=== PATIENT | female | born 1945 | race Caucasian/White ===

== ENCOUNTER 2018-06-21 01:12 | Observation (INO) ==
[2018-06-21] MEDS ORDERED: diazePAM 5 MG Tablet PO ONE (01:17)
--- NOTE | 2018-06-21 01:29 | ED ---
HPI General Chief Complaint: Dizziness Stated Complaint: dizziness Time Seen by Provider: 06/21/18 01:17 Source: patient Mode of arrival: EMS Limitations: no limitations History of Present Illness HPI Narrative: The patient is a 73-year-old female who presents to the emergency department via EMS for dizziness. The patient notes intermittent dizziness over the last several weeks, thought she had benign positional vertigo and has been taking meclizine. The patient states her previous episodes of dizziness were light and self resolving. However, the patient awakened tonight with severe dizziness which she describes as "room spinning ". She also complains of nausea and vomiting. The patient states when she first stood up, she fell backwards on the bed because of the dizziness. The patient then tried ambulating to the bathroom and had to hold onto the wall. The patient's dizziness is worse when she turns her head to the left, goes from lying to standing, and when she tries to ambulate. The patient does have a history of diabetes, denies any history of hypertension, hyperlipidemia, or tobacco use. The patient was told several years ago that she may have suffered multiple TIAs. Symptoms are moderate and progressive. The patient's primary physician is Dr. Herrera. complaint: Reports dizziness Onset (ago): hour(s) Timing: awoke with symptoms Description: Reports "room spinning" History of similar episodes: Yes History of trauma: No Severity: severe Relieving factors: remaining still Exacerbating factors: movement and position Associated symptoms: Reports ataxia, weakness, nausea and vomiting Related Data Allergies Allergy/AdvReac Type Severity Reaction Status Date / Time cephalexin Allergy Severe Rash Unverified 12/20/16 19:08 penicillin G Allergy Severe Unverified 12/20/16 19:08 simvastatin Allergy Severe swelling Unverified 12/20/16 19:08 Sulfa (Sulfonamide Allergy Severe Unverified 12/20/16 19:08 Antibiotics) egg Allergy Mild stomach Unverified 12/20/16 19:08 pain Review of Systems ROS: all other systems reviewed are negative [facility] Social History Social History Substance History: No History of Abuse Smoking Status: Former smoker How Often Do You Have a Drink Containing Alcohol: Never Recent Travel in [facility] within the Last 8 Weeks: No Recent Out of Country Travel within the Last 8 Weeks: No Exam Narrative Exam Narrative: GENERAL: Awake, alert, 73-year-old female who appears her stated age and is in no acute respiratory distress. SKIN: Focused skin assessment warm/dry. HEAD: Atraumatic. Normocephalic. EYES: Pupils equal and round. Millimeters bilateral and reactive. Minimal nystagmus to the left and right with EOMs. ENT: No nasal bleeding or discharge. Mucous membranes pink and moist. NECK: Trachea midline. No JVD. CARDIOVASCULAR: Regular rate and rhythm. No murmur appreciated. RESPIRATORY: No accessory muscle use. Clear to auscultation. Breath sounds equal bilaterally. GASTROINTESTINAL: Abdomen soft, non-tender, nondistended. No rebound tenderness. MUSCULOSKELETAL: No obvious deformities. No clubbing. No cyanosis. No edema. NEUROLOGICAL: Awake and alert. No obvious cranial nerve deficits. Motor grossly within normal limits. Normal speech. No drift of the upper or lower extremities. Minimally decreased sensation to soft touch on the left lower extremity, however, she states that is chronic secondary to previous knee surgery. Heel to keita is normal. Finger to nose is normal. Visual redd appear symmetric. No dysarthria noted. Smile is symmetric. Tongue is midline. Sensation is symmetric on the face and legs. Patient with ambulation drifted to the right. PSYCHIATRIC: Appropriate mood and affect; insight and judgment normal. Course Initial Documented Vital Signs Pulse Rate 77 06/21/18 01:14 Respiratory Rate 18 06/21/18 01:14 Blood Pressure 200/78 H 06/21/18 01:14 Pulse Oximetry 98 06/21/18 01:14 Last Documented Vital Signs Pulse Rate 80 06/21/18 01:39 Respiratory Rate 13 06/21/18 01:39 Blood Pressure 148/65 H 06/21/18 01:39 Pulse Oximetry 97 06/21/18 01:39 Medical Decision Making [facility] Narrative Medical decision making narrative: IV was established, labs are drawn and sent, and the patient was placed on cardiac telemetry monitoring and continuous pulse oximetry monitoring. CT of the brain was obtained. The patient was administered meclizine and Valium. I did attempt to ambulate the patient, however, she was unable to ambulate in a straight line without assistance. The patient was walking to the right with a right hand held out for balance. CT of the brain was negative. Laboratory evaluation is unremarkable. The patient was reevaluated at 4 AM, still has dizziness, cannot rule out cerebellar infarct. The patient is still unable to ambulate, will be a 23-hour observation. The patient would benefit from noncontrast MRI of the brain, if negative, physical therapy evaluation. The patient was administered aspirin 162 mg orally. The patient's UA did have 9 WBCs, culture is pending, patient was administered Macrobid orally. Medical Screen Exam Complete: Yes Emergency Medical Condition: Yes Differential Diagnosis Differential Diagnosis: Differential diagnosis includes vestibular neuritis, Mnire's disease, labyrinthitis, benign positional vertigo, neuroma, CVA, hemorrhage, hyponatremia. Lab Data Lab results reviewed: Yes I reviewed the patient's lab results. Result diagrams: 06/21/18 02:40 06/21/18 02:40 Lab Results 06/21/18 06/21/18 06/21/18 Range/Units 02:40 02:40 03:02 WBC 7.4 (4.0-11.0) th/mm3 RBC 4.86 (4.00-5.30) mil/mm3 Hgb 14.3 (11.6-15.3) gm/dL Hct 41.1 (35.0-46.0) % MCV 84.6 (80.0-100.0) fL MCH 29.5 (27.0-34.0) pg MCHC 34.8 (32.0-36.0) % RDW 14.7 (11.6-17.2) % Plt Count 211 (150-450) th/mm3 MPV 7.8 (7.0-11.0) fL Neut % (Auto) 67.0 (16.0-70.0) % Lymph % (Auto) 19.1 (9.0-44.0) % [place] % (Auto) 9.0 H (0.0-8.0) % Eos % (Auto) 4.2 H (0.0-4.0) % Baso % (Auto) 0.7 (0.0-2.0) % Neut # (Auto) 4.9 (1.8-7.7) th/mm3 Lymph # (Auto) 1.4 (1.0-4.8) th/mm3 [place] # (Auto) 0.7 (0.0-0.9) th/mm3 Eos # (Auto) 0.3 (0.0-0.4) th/mm3 Baso # (Auto) 0.0 (0.0-0.2) th/mm3 WBC Differential . Differential Comment Auto diff final Sodium 144 (136-145) meq/L Potassium 4.2 (3.5-5.1) meq/L Chloride 109 H (98-107) meq/L Carbon Dioxide 27.7 (21.0-32.0) meq/L Anion Gap 7 (5-15) meq/L BUN 21 H (7-18) mg/dL Creatinine 0.98 (0.50-1.00) mg/dL Estimated GFR 55 L (>89) mL/min Random Glucose 103 (74-106) mg/dL Calcium 9.6 (8.5-10.1) mg/dL Total Bilirubin 0.5 (0.2-1.0) mg/dL AST 22 (15-37) U/L ALT 30 (10-53) U/L Alkaline Phosphatase 85 (45-117) U/L Troponin I Less than 0.02 L (0.02-0.05) ng/mL Total Protein 7.3 (6.4-8.2) g/dL Albumin 3.9 (3.4-5.0) g/dL Urine Color Straw (Yellw/Straw) Urine Clarity Clear (Clear) Urine pH 6.0 (5.0-8.5) Ur Specific [place] 1.006 (1.002-1.035) Urine Protein Negative (Neg-Trace) mg/dL Urine Glucose (UA) Negative (Negative) mg/dL Urine Ketones Negative (Negative) mg/dL Urine Occult Blood Negative (Negative) Urine Nitrate Negative (Negative) Urine Bilirubin Negative (Negative) Urine Urobilinogen Less than 2 (Less than 2) mg/dL Ur Leukocyte Esterase Moderate H (Negative) Urine RBC Less than 1 (0-3) /hpf Urine WBC 9 H (0-5) /hpf Urine Bacteria Rare H (None) /hpf Urine Mucus Few H (Occasional) /lpf Micro UA Comment Culture indicated Ur Microscopic Review Not Reportable Urine Culture Comments Culture indicated Imaging Data Radiologist's impression: Head CT 06/21/18 01:17 CONCLUSION: No acute intracranial findings. . ECG Data EKG Prior to Arrival: No Attestation: I personally reviewed and interpreted this ECG as follows: Interpretation: EKG reveals normal sinus rhythm with a rate 81. No ischemic changes or ectopy noted. Discharge Plan Discharge Disposition Patient Disposition: ED Admit(ED Internal Use Only) Discharge Condition Condition: Stable Discharge Order Discharge Orders: ED Use Only Admit Order (Routine); Ordered 06/21/18 Ordered By: Jw Rose Discharge Details Diagnosis: Dizziness, Acute UTI Physicians Team ED Provider: Jw Rose Primary Care Provider: Jere Hebert Discharge Interventions Interventions: Vital Signs Last Done: 06/21/18 01:39 Status ED Status: Admitted Observation Patient
[2018-06-21 03:00] LABS: Baso % (Auto) 0.7 % (0.0-2.0); Eos # (Auto) 0.3 th/mm3 (0.0-0.4); Eos % (Auto) 4.2 % (0.0-4.0); Hematocrit 41.1 % (35.0-46.0); Hemoglobin 14.3 gm/dL (11.6-15.3); Lymph # (Auto) 1.4 th/mm3 (1.0-4.8); Lymph % (Auto) 19.1 % (9.0-44.0); Mean Corpuscular HGB Conc 34.8 % (32.0-36.0); Mean Corpuscular Hemoglobin 29.5 pg (27.0-34.0); Mean Corpuscular Volume 84.6 fL (80.0-100.0); Mean Platelet Volume 7.8 fL (7.0-11.0); Mono # (Auto) 0.7 th/mm3 (0.0-0.9); Neut # (Auto) 4.9 th/mm3 (1.8-7.7); Platelet Count 211 th/mm3 (150-450); Red Blood Count 4.86 mil/mm3 (4.00-5.30); Red Cell Distribution Width 14.7 % (11.6-17.2); White Blood Count 7.4 th/mm3 (4.0-11.0)
[2018-06-21 03:19] LABS: Albumin 3.9 g/dL (3.4-5.0); Anion Gap 7 meq/L (5-15); Aspartate Aminotransferase 22 U/L (15-37); Blood Urea Nitrogen 21 mg/dL (7-18); Calcium 9.6 mg/dL (8.5-10.1); Carbon Dioxide 27.7 meq/L (21.0-32.0); Chloride 109 meq/L (98-107); Glomerular Filtration Rate 55 mL/min (>89); Glucose,Random 103 mg/dL (74-106); Potassium 4.2 meq/L (3.5-5.1); Sodium 144 meq/L (136-145)
[2018-06-21 03:23] LABS: Alanine Aminotransferase 30 U/L (10-53); Alkaline Phosphatase 85 U/L (45-117); Total Protein 7.3 g/dL (6.4-8.2)
[2018-06-21 03:26] LABS: Bacteria,Urine Rare /hpf; Bilirubin,Urine Negative (Negative); Clarity,Urine Clear (Clear); Color,Urine Straw (Yellw/Straw); Glucose,Urine (UA) Negative (Negative); Leukocyte Esterase,Urine Moderate (Negative); Mucus,Urine Few /lpf (Occasional); Nitrite,Urine Negative (Negative); Specific Gravity,Urine 1.006 (1.002-1.035)
[2018-06-21] MEDS ORDERED: Nitrofurantoin Monohydrate-Macrocrystal 100 MG Capsule PO ONE (03:30)
--- NOTE | 2018-06-21 03:38 | CT ---
EXAM DATE: 06/21/2018 3:24 AM EST AGE/SEX: 73 years / Female INDICATIONS: Dizziness. CLINICAL DATA: This is the patient's initial encounter. Patient reports that signs and symptoms have been present for 1 day and indicates a pain score of 0/10. MEDICAL/SURGICAL HISTORY: Carcinoma, breast. Diabetes. COPD. TIA. None. RADIATION DOSE: 56.35 CTDI (mGy) COMPARISON: No prior exams available for comparison. TECHNIQUE: CT of the head without contrast. Using automated exposure control and adjustment of the mA and/or kV according to patient size, radiation dose was kept as low as reasonably achievable to ob tain optimal diagnostic quality images. DICOM format image data is available electronically for revi ew and comparison. FINDINGS: Patchy moderate diminished density in periventricular white matter which appears benign, likely micro vascular ischemic in etiology. No evidence of intracranial hemorrhage or mass. Nothing to suggest acu te infarction. Extracranial structures are benign in intact. CONCLUSION: No acute intracranial findings. . Electronically signed by: Amor Varghese MD Board Certified Radiologist 06/21/2018 3:36 AM EST
[2018-06-21] MEDS: Sod Chloride 0.9% Inj 1,000 ML IV.CONT SCH ×3 (04:26→20:55)
[2018-06-21] MEDS ORDERED: Acetaminophen 325 MG Tablet PO PRN (04:44)
[2018-06-21] MEDS ORDERED: Dextrose 50% in Water 50 ML Vial IV.PUSH PRN (04:56)
--- NOTE | 2018-06-21 04:56 | P.HPIM ---
History of Present Illness Service: [facility] Primary Care Physician: Chuck Hebert MD Chief Complaint: Dizziness History of Present Illness: 73 y/o Female with a history of skin cancer, breast cancer, diabetes, fibromyalgia, IBS, restless leg and chronic fatigue syndrome presented to the ED with complaints of dizziness. Patient states for last 2 weeks she has had intermittent episodes of dizziness where she feels like the room is spinning and she feels off balance and has to hang onto ricks to be able to get where she is going. She denies any associated double vision, blurry vision, chest pain, shortness of breath, fever, chills, ear pain, congestion, headaches, abdominal pain or dysuria. She states her son gave her some meclizine tablets and it did relieve the symptoms for a little bit. She states tonight she did have some nausea with the dizziness but no vomiting. She does state that the dizziness is worse when she looks to the left versus the right. No history of falls. Review of Systems Review of Systems: all other systems reviewed are negative [facility] Social History Social History Substance History: No History of Abuse Second Hand Smoke Exposure: Yes Smoking Status: Former smoker Tobacco Type: Cigarettes How Often Do You Have a Drink Containing Alcohol: Never Recent Travel in [facility] within the Last 8 Weeks: No Recent Out of Country Travel within the Last 8 Weeks: No Immunization History Tetanus Immunization: Unsure Medications and Allergies Allergies Allergy/AdvReac Type Severity Reaction Status Date / Time cephalexin Allergy Severe Rash Unverified 12/20/16 19:08 penicillin G Allergy Severe Unverified 12/20/16 19:08 simvastatin Allergy Severe swelling Unverified 12/20/16 19:08 Sulfa (Sulfonamide Allergy Severe Unverified 12/20/16 19:08 Antibiotics) egg Allergy Mild stomach Unverified 12/20/16 19:08 pain Home Medications Medication Instructions Recorded Confirmed Type Advair HFA 06/21/18 History metformin 100 mg PO DAILY 06/21/18 06/21/18 History Active Medications: Active Medications Acetaminophen (Tylenol) 650 mg PO Q4H PRN PRN Reason: Temp > 100.4 Sodium Chloride (Ns Inj) 1,000 mls @ 100 mls/hr IV.CONT .Q10H YANELIS Last Admin: 06/21/18 04:26 Dose: 100 mls/hr Ondansetron HCl (Zofran Inj) 4 mg IV.PUSH Q6H PRN PRN Reason: NAUSEA OR VOMITING Sodium Chloride (Ns Flush) 2 ml IV.FLUSH PRN PRN PRN Reason: FLUSH AFTER USING IV ACCESS Physical Exam Vital signs: Vital Signs 06/21/18 01:14 06/21/18 01:39 Pulse Rate 77 80 Respiratory Rate 18 13 Blood Pressure 200/78 H 148/65 H Pulse Oximetry 98 97 Intake & Output 06/20/18 06/20/18 06/21/18 06:59 18:59 06:59 Weight 95.708 kg Narrative: GENERAL: Well-nourished patient in no acute distress SKIN: Warm and dry. No open lesions or abrasions EENT: Pupils equal and round. No scleral icterus. No injection or drainage. No nasal bleeding or discharge. Mucous membranes pink and moist. Tympanic membranes pearly walter no evidence of effusion. CARDIOVASCULAR: Regular rate and rhythm. RESPIRATORY: No accessory muscle use. Clear to auscultation. Breath sounds equal bilaterally. GASTROINTESTINAL: Abdomen soft, non-tender, nondistended. Hepatic and splenic margins not palpable. MUSCULOSKELETAL: Extremities without clubbing, cyanosis, or edema. No obvious deformities. NEUROLOGICAL: Awake and alert. No obvious cranial nerve deficits. Motor grossly within normal limits. Five out of 5 muscle strength in the arms and legs. Normal speech. Results Labs CBC & Chem 7: 06/21/18 02:40 06/21/18 02:[address] 06/21/18 01:17 CONCLUSION: No acute intracranial findings. . Caprini VTE Risk Assessment Caprini VTE Risk Assessment: No/Low Risk (score <= 1) Caprini Risk Assessment Model: Point Value = 1 Point Value = 2 Point Value = 3 Point Value = 5 Age 41-60 Minor surgery BMI > 25 kg/m2 Swollen legs Varicose veins or History of unexplained or recurrent spontaneous Oral contraceptives or hormone replacement Sepsis (< 1 month) Serious lung disease, including pneumonia (< 1 month) Abnormal pulmonary function Acute myocardial infarction Congestive heart failure (< 1 month) History of inflammatory bowel disease Medical patient at bed rest Age 61-74 Arthroscopic surgery Major open surgery (> 45 min) Laparoscopic surgery (> 45 min) Malignancy Confined to bed (> 72 hours) Immobilizing plaster cast Central venous access Age >= 75 History of VTE Family history of VTE Factor V Leiden Prothrombin [id number] Lupus anticoagulant Anticardiolipin antibodies Elevated serum homocysteine Heparin-induced thrombocytopenia Other congenital or acquired thrombophilia Stroke (< 1 month) Elective arthroplasty Hip, pelvis, or leg fracture Acute spinal cord injury (< 1 month) Prophylaxis Regimen: Total Risk Factor Score Risk Level Prophylaxis Regimen 0-1 Low Early ambulation 2 Moderate Order ONE of the following: *Sequential Compression Device (SCD) *Heparin 5000 units SQ BID 3-4 Higher Order ONE of the following medications: *Heparin 5000 units SQ TID *Enoxaparin/Lovenox 40 mg SQ daily (WT < 150 kg, CrCl > 30 mL/min) *Enoxaparin/Lovenox 30 mg SQ daily (WT < 150 kg, CrCl > 10-29 mL/min) *Enoxaparin/Lovenox 30 mg SQ BID (WT < 150 kg, CrCl > 30 mL/min) AND/OR *Sequential Compression Device (SCD) 5 or more Highest Order ONE of the following medications: *Heparin 5000 units SQ TID (Preferred with Epidurals) *Enoxaparin/Lovenox 40 mg SQ daily (WT < 150 kg, CrCl > 30 mL/min) *Enoxaparin/Lovenox 30 mg SQ daily (WT < 150 kg, CrCl > 10-29 mL/min) *Enoxaparin/Lovenox 30 mg SQ BID (WT < 150 kg, CrCl > 30 mL/min) AND *Sequential Compression Device (SCD) Assessment and Plan Plan 73 y/o Female with a history of skin cancer, breast cancer, diabetes, fibromyalgia, IBS, restless leg and chronic fatigue syndrome presented to the ED with complaints of dizziness. Vertigo Head CT reviewed and shows no acute abnormalities -MRI of the brain ordered -Meclizine p.o. as needed -PT for Tanika maneuver UTI, mild UA shows moderate leukocyte esterase with rare bacteria -Culture pending -Macrobid p.o. twice daily Diabetes, chronic -Accu-Cheks with sliding scale insulin -Diabetic diet -Hold metformin for now DVT prophylaxis: SCDs The exam, history, and the medical decision-making described in the above note were completed with the assistance of the mid-level provider. I reviewed and agree with the findings presented. I attest that I had a [id number] encounter with the patient on the same day, and personally performed and documented my assessment and findings in the medical record. Attending Attestation The exam, history, and the medical decision-making described in the above note were completed with the assistance of the mid-level provider. I reviewed and agree with the findings presented. I attest that I had a [id number] encounter with the patient on the same day, and personally performed and documented my assessment and findings in the medical record.
[2018-06-21] MEDS ORDERED: Gadobutrol PF 10 MMOL/10 ML Vial (for RAD) IV.SIG ONE (08:55)
--- NOTE | 2018-06-21 09:01 | MR ---
EXAM DATE: 06/21/2018 8:49 AM EST AGE/SEX: 73 years / Female INDICATIONS: Dizziness. CLINICAL DATA: This is the patient's subsequent encounter. Patient reports that signs and symptoms h ave been present for 1 day and indicates a pain score of 3/10. MEDICAL/SURGICAL HISTORY: Carcinoma, breast. Diabetes mellitus type II. skin cancer Cholecyst ectomy. Hysterectomy. Tubal ligation. Breast cancer removed, skin cancer, knee replacement COMPAR[place]: [facility] HEAD W/O CONTRAST, 06/21/2018. . TECHNIQUE: Multiplanar, multisequence examination of the brain was performed without and with 9.5 ml Gadavist (gadobutrol) contrast as a single exam dose. FINDINGS: Cerebrum: Moderate diffuse cerebral atrophy. The ventricles are normal for age. No evidence of midl ine shift, mass lesion, hemorrhage or acute infarction. No extraaxial fluid collections are seen. T he pituitary gland and suprasellar cistern are normal in configuration. White Matter: Prominent periventricular coalescing white matter T2 prolongation. Posterior Fossa: The cerebellum and brainstem are intact. The 4th ventricle is midline. The cerebel lopontine angle is unremarkable. The cerebellar tonsils are normal in position. Diffusion Imaging: No focal areas of restricted diffusion are seen. No evidence of acute infarction . Extracranial: The visualized portions of the orbits and paranasal sinuses are unremarkable. Post Contrast: No abnormal areas of parenchymal or dural enhancement. No evidence of blood-brain ba rrier breakdown. CONCLUSION: 1. Senescent changes with prominent periventricular ischemic white matter demyelination. 2. No acute abnormality. Specifically, no acute infarction, hemorrhage or mass. Electronically signed by: Benson Putnam MD Board Certified Radiologist 06/21/2018 8:59 AM EST
[2018-06-21] MEDS: Insulin NovoLOG Aspart Correctional Sugar Inj SQ SCH ×4 (09:21→20:55)
[2018-06-21] MEDS: Nitrofurantoin Monohydrate-Macrocrystal 100 MG Capsule PO SCH ×2 (09:23→17:11)
--- NOTE | 2018-06-21 11:34 | ECG ---
Date Performed: 06/21/2018 Time Performed: 02:08:14 PTAGE: 73 years EKG: Sinus rhythm NORMAL ECG Since the PREVIOUS TRACING , no significant change noted PREVIOUS TRACIN08/28/2015 17.03 DOCTOR: Gaetano Angel Interpretating Date/Time 06/21/2018 11:32:41
--- NOTE | 2018-06-21 15:42 | P.DCO ---
Physical Therapy Order: Evaluate and treat Home Health Nursing Order: Medical education, Signs/symptoms of disease process, Medication education-adverse effect and Nursing assessment with vital signs Case Management Consult Case Management Consult-Home Health: Yes I have seen patient Rachana Quinteros on 06/21/18. My clinical findings support the need for the requested home health care services because: Limited mobility due to disease progression I certify that my clinical findings support that this patient is homebound because: Post-op weakness, Impaired cognitive ability/safety and Unsteady gait/balance
[2018-06-22] MEDS: Insulin NovoLOG Aspart Correctional Sugar Inj SQ SCH ×2 (08:32→13:38)
[2018-06-22 08:44] VITALS: RESP 16; TEMP 97.7; O2SAT 94
[2018-06-22] MEDS: Nitrofurantoin Monohydrate-Macrocrystal 100 MG Capsule PO SCH (08:44)
[2018-06-22] MEDS: Sod Chloride 0.9% Inj 1,000 ML IV.CONT SCH ×2 (08:47→10:52)
[2018-06-22 08:50] LABS: Baso # (Auto) 0.1 th/mm3 (0.0-0.2); Baso % (Auto) 1.3 % (0.0-2.0); Eos # (Auto) 0.3 th/mm3 (0.0-0.4); Eos % (Auto) 5.7 % (0.0-4.0); Hematocrit 42.6 % (35.0-46.0); Hemoglobin 14.6 gm/dL (11.6-15.3); Lymph # (Auto) 1.4 th/mm3 (1.0-4.8); Lymph % (Auto) 26.2 % (9.0-44.0); Mean Corpuscular HGB Conc 34.2 % (32.0-36.0); Mean Corpuscular Hemoglobin 29.3 pg (27.0-34.0); Mean Corpuscular Volume 85.8 fL (80.0-100.0); Mean Platelet Volume 7.7 fL (7.0-11.0); Mono # (Auto) 0.6 th/mm3 (0.0-0.9); Mono % (Auto) 11.7 % (0.0-8.0); Neut % (Auto) 55.1 % (16.0-70.0); Platelet Count 193 th/mm3 (150-450); Red Blood Count 4.97 mil/mm3 (4.00-5.30); White Blood Count 5.4 th/mm3 (4.0-11.0)
[2018-06-22 09:25] LABS: Carbon Dioxide 26.2 meq/L (21.0-32.0); Potassium 3.9 meq/L (3.5-5.1)
[2018-06-22 11:58] VITALS: BP 115/58; PULSE 74
--- NOTE | 2018-06-22 20:30 | P.DS ---
DS: Providers Date of admission: 06/21/18 04:07 Primary care physician: Chuck Hebert MD Brief History from admission: 73 y/o Female with a history of skin cancer, breast cancer, diabetes, fibromyalgia, IBS, restless leg and chronic fatigue syndrome presented to the ED with complaints of dizziness. Patient states for last 2 weeks she has had intermittent episodes of dizziness where she feels like the room is spinning and she feels off balance and has to hang onto ricks to be able to get where she is going. She denies any associated double vision, blurry vision, chest pain, shortness of breath, fever, chills, ear pain, congestion, headaches, abdominal pain or dysuria. She states her son gave her some meclizine tablets and it did relieve the symptoms for a little bit. She states tonight she did have some nausea with the dizziness but no vomiting. She does state that the dizziness is worse when she looks to the left versus the right. No history of falls. DS: Summary 73 y/o Female with a history of skin cancer, breast cancer, diabetes, fibromyalgia, IBS, restless leg and chronic fatigue syndrome presented to the ED with complaints of dizziness. UA suggestive of UTI received antibiotics. Patient is found with vertigo, imaging reviewed and no acute abnormalities. Meclizine ordered. Patient did walk with physical therapy and patient improved. PT recommends home with home health. Patient is discharged home with home health in stable condition to follow-up with PCP and consultants as outpatient. Vertigo Head CT reviewed and shows no acute abnormalities -MRI of the brain ordered -Meclizine p.o. as needed -PT for Tanika maneuver UTI, mild UA shows moderate leukocyte esterase with rare bacteria -Culture pending -Macrobid p.o. twice daily Diabetes, chronic -Accu-Cheks with sliding scale insulin -Diabetic diet -Hold metformin for now DVT prophylaxis: SCDs Time Spent with Patient Total time spent providing and/or coordinating discharge services:> 30 min Quality: VTE Deep Vein Thrombosis/Pulmonary Embolism Present on Admission: No Exam Narrative Exam Narrative: GENERAL: Pleasant 73 yo female, well-nourished patient in no acute distress CARDIOVASCULAR: Regular rate and rhythm. RESPIRATORY: No accessory muscle use. Clear to auscultation. Breath sounds equal bilaterally. GASTROINTESTINAL: Abdomen soft, non-tender, nondistended. Hepatic and splenic margins not palpable. MUSCULOSKELETAL: Extremities without clubbing, cyanosis, or edema. No obvious deformities. NEUROLOGICAL: Awake and alert. No obvious cranial nerve deficits. Motor grossly within normal limits. Normal speech. Results Labs on day of discharge: Labs from last 24 hours 06/22/18 06/22/18 06/22/18 12:25 08:37 08:37 WBC 5.4 RBC 4.97 Hgb 14.6 Hct 42.6 MCV 85.8 MCH 29.3 MCHC 34.2 RDW 15.0 Plt Count 193 MPV 7.7 Neut % (Auto) 55.1 Lymph % (Auto) 26.2 [place] % (Auto) 11.7 H Eos % (Auto) 5.7 H Baso % (Auto) 1.3 Neut # (Auto) 3.0 Lymph # (Auto) 1.4 [place] # (Auto) 0.6 Eos # (Auto) 0.3 Baso # (Auto) 0.1 WBC Differential . Differential Comment Auto diff final Sodium 142 Potassium 3.9 Chloride 109 H Carbon Dioxide 26.2 Anion Gap 7 BUN 15 Creatinine 0.77 Estimated GFR 73 L POC Glucose 169 H Random Glucose 99 Calcium 9.0 06/22/18 06/21/18 08:31 20:47 WBC RBC Hgb Hct MCV MCH MCHC RDW Plt Count MPV Neut % (Auto) Lymph % (Auto) [place] % (Auto) Eos % (Auto) Baso % (Auto) Neut # (Auto) Lymph # (Auto) [place] # (Auto) Eos # (Auto) Baso # (Auto) WBC Differential Differential Comment Sodium Potassium Chloride Carbon Dioxide Anion Gap BUN Creatinine Estimated GFR POC Glucose 97 124 H Random Glucose Calcium Impressions ITS Impressions Head MRI 06/21/18 00:00 CONCLUSION: 1. Senescent changes with prominent periventricular ischemic white matter demyelination. 2. No acute abnormality. Specifically, no acute infarction, hemorrhage or mass. Head CT 06/21/18 01:17 CONCLUSION: No acute intracranial findings. . Discharge Plan Discharge Disposition Patient Disposition: Disch W/Home Health Service Discharge Condition Condition: Stable Discharge Order Discharge Orders: Discharge Order (Routine); Ordered 06/22/18 Ordered By: Magda Goodman Discharge Details Anticipated Discharge Date: 06/22/18 Discharge Comment: DC when arrangements are done Physicians Team Primary Care Provider: Jere Hebert Attending Provider: Magda Goodman Rxs /Orders / Referrals /Forms Prescriptions: New meclizine 25 mg Tablet 25 mg PO Q6H PRN (Reason: Dizziness) Qty: 30 RF: 0 nitrofurantoin monohyd/m-cryst 100 mg Capsule 100 mg PO BIDPC Qty: 4 RF: 0 Continue Advair HFA RF: 0 metformin 500 mg Tablet 100 mg PO DAILY RF: 0 Discontinued alprazolam [Xanax] 0.25 mg Tablet 0.25 mg PO BID PRN (Reason: Sleep) RF: 0 Ambulatory Orders / Order Sets / DME: Gee Cevallos/[facility] (1 each) (Routine) Location: Determined by Patient Ordered By: Magda Goodman Referrals: Jere Hebert MD [Primary Care Provider] - See Instructions ( Please call the physician's office to book the appointment to be seen within [2-3 days]. office is closed on Fridays. ) Discharge Instructions Patient Printed Instructions: Dizziness (GEN) Status ED Status: Left Department Discharge Information Discharge Date/Time: 06/22/18 15:23
== END 2018-06-22 15:23 | disposition home health service (06) ==
LOC: NEPC 01:12 → NEDA 01:12 → NEPHCDU 05:39
PROVIDERS: ADMIT Hospitalist; ATTEND Hospitalist
DX: R42 Dizziness and giddiness; K58.9 Irritable bowel syndrome, unspecified; Z88.1 Allergy status to other antibiotic agents; W19.XXXA Unspecified fall, initial encounter; N39.0 Urinary tract infection, site not specified; M79.7 Fibromyalgia; Z88.2 Allergy status to sulfonamides; Z85.3 Personal history of malignant neoplasm of breast; E11.9 Type 2 diabetes mellitus without complications; F17.210 Nicotine dependence, cigarettes, uncomplicated; G25.81 Restless legs syndrome; Z85.828 Personal history of other malignant neoplasm of skin; Z79.84 Long term (current) use of oral hypoglycemic drugs
CPT/HCPCS: 70450; 70553; 80048; 80053; 81001; 82948; 82962; 84484; 85025; 87086; 90774; 90784; 93005; 96361; 96372; 96374; 97112; 97163; 99285; A9585; C8952; G0378; G8987; G8988; J1815; J2405; J7030